=== PATIENT | male | born 1990 | race Hispanic/Latino ===

== ENCOUNTER 2018-12-30 20:16 | Emergency (ER) | payer SELFPAY ==
[~2018-12-30] VITALS: Ht 172.7 cm; Wt 89.5 kg
[2018-12-30 20:58] LABS: HEMATOCRIT 41.7 % (39.0-50.0); HEMOGLOBIN 14.1 g/dl (14.0-18.0); IMMATURE GRANULOCYTES 0.2 % (0.0-5.0); MEAN CELL VOLUME 91.9 fL CALC (80.0-100.0); MEAN CORPUSCULAR HGB 31.1 pG CALC (26.0-32.0); MEAN CORPUSCULAR HGB CONC 33.8 g/L CALC (32.0-36.0); NEUT# 4.52 thou/uL (1.82-7.42); RED BLOOD COUNT 4.54 mill/uL (4.70-6.10)
[2018-12-30 21:15] LABS: ALBUMIN 4.8 g/dL (3.2-5.0); ALKALINE PHOSPHATASE 85 u/l (38-126); ANION GAP 15 (6-22 (CALC)); BILIRUBIN, TOTAL 0.4 mg/dL (0.0-1.4); BUN 13 mg/dL (9-20); BUN/CREATININE RATIO 19 (12-20 (CALC)); CARBON DIOXIDE 24 mmol/l (22-30); CHLORIDE 104 mmol/l (95-108); CREATININE 0.7 mg/dL (0.7-1.3); GFR > 60 ML/MIN (>=60 (CALC)); GFR FOR AFR.AMER. > 60 ML/MIN (>=60 (CALC)); MAGNESIUM 1.9 mg/dL (1.6-2.3); SGOT/AST 24 u/l (17-59); SODIUM 139 mmol/l (137-146)
[2018-12-30 21:44] LABS: TSH, 3RD GENERATION 1.65 uIU/mL (0.47 - 4.68)
[2018-12-30 22:12] LABS: URINE BILIRUBIN - DIPSTICK NEGATIVE (NEGATIVE); URINE BLOOD DIPSTICK NEGATIVE (NEGATIVE); URINE COLOR YELLOW; URINE GLUCOSE - DIPSTICK NEGATIVE (NEGATIVE); URINE KETONE NEGATIVE (NEGATIVE); URINE LEUK ESTERASE NEGATIVE (NEGATIVE); URINE NITRITE - DIPSTICK NEGATIVE (Negative); URINE PROTEIN - DIPSTICK NEGATIVE (NEG-TRACE); URINE UROBILINOGEN - DIPSTICK 0.2 E.U./dL (0.2)
[2018-12-30 22:30] VITALS: BP 134/77
== END 2018-12-30 22:52 | disposition home or self-care (01) | DRG 948 ==
LOC: ED 20:16
PROVIDERS: Family Medicine
DX: R53.1 Weakness (principal)

== ENCOUNTER 2020-03-26 23:09 | Emergency (ER) | payer SELFPAY ==
[~2020-03-26] VITALS: Ht 172.7 cm; Wt 77.3 kg
[2020-03-26] MEDS ORDERED: TOBRADEX 2.5 ML OD (23:43)
[2020-03-27 00:25] VITALS: BP 142/77
== END 2020-03-27 00:25 | disposition home or self-care (01) | DRG 918 ==
LOC: ED 23:09
DX: T49.0X1A Poisoning by local antifungal, anti-infective and anti-inflammatory drugs, accidental (unintentional), initial encounter (principal); H10.211 Acute toxic conjunctivitis, right eye